=== PATIENT | female | born 1945 | race Caucasian/White ===

== ENCOUNTER → 2025-03-08 13:56 | Outpatient (REF) | payer OTHER, SELFPAY | LOC: HWWDC 13:56 | PROVIDERS: ATTENDING PHYSICIAN Nurse Practitioner Family | DX: Z12.31 Encounter for screening mammogram for malignant neoplasm of breast (principal); M81.0 Age-related osteoporosis without current pathological fracture | CPT/HCPCS: 77063; 77067; 77080 ==

== ENCOUNTER → 2025-09-23 09:11 | Outpatient (REF) | payer OTHER, SELFPAY | LOC: HWRCS 09:11 | PROVIDERS: ATTENDING PHYSICIAN Internal Medicine; FAMILY PHYSICIAN Nurse Practitioner Family | DX: I35.0 Nonrheumatic aortic (valve) stenosis (principal); I35.1 Nonrheumatic aortic (valve) insufficiency; I34.2 Nonrheumatic mitral (valve) stenosis | CPT/HCPCS: 93306 ==